=== PATIENT | female | born 1975 | race Caucasian/White ===

== ENCOUNTER 2022-01-21 08:38 | Emergency (ER) | payer BC ==
[2022-01-21] MEDS ORDERED: Sodium Chloride 0.9% 1,000 ML IV ONE (09:31)
[2022-01-21] MEDS ORDERED: Sodium Chloride 0.9% 2.5 ML Syringe FLUSH PRN (09:31)
[2022-01-21] MEDS ORDERED: Sodium Chloride 0.9% 10 ML Syringe FLUSH PRN (09:31)
[2022-01-21] MEDS ORDERED: Ondansetron 4 MG/2 ML SDV IVPUSH ONE (09:31)
[2022-01-21] MEDS ORDERED: Ketorolac 30 MG/ML SDV IVPUSH ONE (09:31)
[2022-01-21] MEDS ORDERED: Tamsulosin 0.4 MG Cap.ER PO ONE (09:32)
[2022-01-21 11:02] LABS: POTASSIUM,K 4.1 mmol/L (3.5-5.1)
== END 2022-01-21 11:45 | disposition home or self-care (01) ==
LOC: MW.ED 08:38
DX: N13.2 Hydronephrosis with renal and ureteral calculous obstruction (principal); Z88.2 Allergy status to sulfonamides; Z79.899 Other long term (current) drug therapy; Z86.16 Personal history of COVID-19
CPT/HCPCS: 36415; 74176; 80053; 81001; 81025; 85025; 96361; 96374; 96375; 99284; A9270; J1885; J2405; J3490; J7030